=== PATIENT | female | born 1930 | race Caucasian/White ===

== ENCOUNTER → 2017-03-12 | Outpatient (CLI) | payer OTHER | LOC: CT 10:03 | DX: I77.9 Disorder of arteries and arterioles, unspecified (principal); I73.9 Peripheral vascular disease, unspecified; R20.2 Paresthesia of skin; I70.203 Unspecified atherosclerosis of native arteries of extremities, bilateral legs; R93.8 Abnormal findings on diagnostic imaging of other specified body structures; K80.20 Calculus of gallbladder without cholecystitis without obstruction | CPT/HCPCS: 36415; 75635; 82565; 84520; J7050; Q9963 ==